=== PATIENT | male | born 1960 | race Caucasian/White ===

== ENCOUNTER 2016-11-09 09:55 | Day surgery (SDC) | payer OTHER ==
[~2016-11-09] VITALS: Ht 154.9 cm; Wt 93.4 kg
[~2016-11-09 09:55] MED LIST: LOVA20TA PO; METF850T2 PO; Sodium Chloride LOK Flush 10 mL Syringe IV PRN; fentaNYL-PF 50 mCg/mL 2 mL Inj IVPUSH PRN
[2016-11-09 10:23] VITALS: BP 158/92; PULSE 77; O2SAT 97
[2016-11-09] MEDS: 0.9% Sodium Chloride 1,000 ML IV SCH ×2 (10:24→11:18)
[2016-11-09 11:13] VITALS: BP 142/94; PULSE 60; RESP 14; O2SAT 93
[2016-11-09 11:23] VITALS: BP 148/96; PULSE 60; RESP 16; O2SAT 95
[2016-11-09 11:34] VITALS: BP 162/96; PULSE 62; RESP 16; O2SAT 97
--- NOTE | 2016-11-09 11:53 | ENDO ---
[address] [address] ENDOSCOPY PROCEDURE PATIENT: JESSICA CARVER : 1960 MR#: [id number] ADMIT: 11/09/2016 JOB ID: [id number] PROCEDURE: Colonoscopy. INDICATIONS: Screening. The patient's ASA classification is 2. Mallampati score is 2. MEDICATIONS: Please see nurse's notes for details regarding sedation. INSTRUMENT USED: PCF H 180 AL. PREP QUALITY: Good. PROCEDURE DETAILS: After informed consent was obtained, the patient was brought to the GI suite, where he was placed on oxygen via nasal cannula and monitored with continuous pulse oximeter, telemetry and blood pressure monitoring. A time-out was performed. Then, he was placed in a left lateral decubitus position and medications were administered for sedation. Digital rectal exam was performed with palpation of the prostate which was unremarkable. The colonoscope was then inserted into the rectum and advanced under direct visualization to the cecum, which was identified by the presence of the ileocecal valve and appendiceal orifice. Once the cecum was reached, the colonoscope was withdrawn back into the rectum as the mucosa and lumen were examined. In the rectum, retroflexion was performed. Following retroflexion, remaining air in the rectum was suctioned, and procedure was completed. FINDINGS: 1. In the ascending colon, there were two diminutive polyps that were removed with cold biopsy forceps. 2. In the transverse colon, there was an approximately 6 mm sessile polyp that was removed with a hot snare. 3. In the descending colon, there was a diminutive polyp that was removed with cold biopsy forceps. Also, in the descending colon, there was an approximately 5 mm sessile polyp that was removed with a hot snare. 4. In the sigmoid colon, there was an approximately 5 mm sessile polyp that was removed with a hot snare. 5. Retroflexed views in the rectum were unremarkable. IMPRESSION: 1. Ascending colon polyps. 2. One transverse colon polyp. 3. Two descending polyps. 4. One sigmoid polyp. RECOMMENDATIONS: 1. Avoid NSAIDs and anticoagulants for 72 hours. 2. Repeat colonoscopy pending polyp pathology results. COMPLICATIONS: None. ESTIMATED BLOOD LOSS: Less than 5 mL. Cc: Dr. Melanie Jacobsen
--- NOTE | 2016-11-10 14:02 | PATH ---
SURGICAL PATHOLOGY Attending Physician:Mary Power CASE STATUS: Signed Out PATIENT NAME: JESSICA CARVER PID: [id number] : 1960 DATE COLLECTED:11/09/2016 18:39 SPECIMEN: 1: Colon, Biopsy 2: Colon, Biopsy 3: Colon, Biopsy 4: Colon, Biopsy CLINICAL HISTORY: A: ASCENDING COLON POLYP BX2 B: TRANSVERSE COLON POLYP X1 C: DESCENDING COLON POLYP X3 D: SIGMOID COLON POLYP FINAL DIAGNOSIS: 1.ASCENDING COLON POLYP: TUBULAR ADENOMA INVOLVING BOTH BIOPSY FRAGMENTS. 2.TRANSVERSE COLON POLYP: TUBULAR ADENOMA. 3.DESCENDING COLON POLYP: HYPERPLASTIC POLYP INVOLVING MULTIPLE BIOPSY FRAGMENTS. 4.SIGMOID COLON POLYP: MINUTE FRAGMENT OF COLON MUCOSA WITH CHANGES CONSISTENT WITH HYPERPLASTIC POLYP. ICD10 CODE D12.2 GROSS DESCRIPTION: The specimen is received in four formalin filled containers labeled with the patient's name. 1). The specimen is sublabeled "ascending colon polyp" and consists of 2 portions of tissue which aggregate to 0.5 x 0.4 x 0.3 CM. The specimen is entirely submitted in cassette 1A. 2). The specimen is sublabeled "transverse colon polyp" and consists of a 0.2 x 0.2 x 0.2 CM portion of tissue which is entirely submitted in cassette 2A. 3). The specimen is sublabeled "descending colon polyp" and consists of multiple portions of tissue which aggregate to 0.8 x 0.5 x 0.4 CM. The specimen is entirely submitted in cassette 3A. 4). The specimen is sublabeled "sigmoid colon polyp" and consists of an extremely tiny less than 0.1 CM portion of tissue which is entirely submitted in cassette 4A. 11/09/2016 DAC MICRO DESCRIPTION: See diagnosis. ICD-9 CODES: CPT CODES: 1: 73628 2: 12557 3: 50532 4: 35418 Electronically Signed Out Coy Gomez MD [facility] [address], [place] [address] Technical component performed at [facility], [address], [place], [address]
== END 2016-11-09 23:59 | disposition home or self-care (01) ==
LOC: END 09:55
PROVIDERS: ATTEND Internal Medicine Gastroenterology
DX: Z12.11 Encounter for screening for malignant neoplasm of colon (principal); D12.2 Benign neoplasm of ascending colon; D12.3 Benign neoplasm of transverse colon; K63.5 Polyp of colon; E11.9 Type 2 diabetes mellitus without complications; Z79.4 Long term (current) use of insulin; Z79.82 Long term (current) use of aspirin
CPT/HCPCS: 45380; 45385; 88305; G0500; J2250; J7030